=== PATIENT | male | born 1985 | race Caucasian/White ===

== ENCOUNTER 2016-08-22 18:22 | Emergency (ER) | payer MEDICAID ==
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
[2016-08-22] MEDS ORDERED: Lactated Ringers 1,000 ML IV SCH (19:30)
[2016-08-22 23:45] VITALS: BP 104/68
--- NOTE | 2016-08-23 09:09 | CR ---
Chest 2V HISTORY: Right-sided chest pain. COMPARISON: None FINDINGS: Cardiac size and pulmonary vessels normal. There are no infiltrates or effusions. No pneum othorax. The osseous structures appear normal. IMPRESSION: No acute pulmonary disease.
== END 2016-08-22 23:48 | disposition home or self-care (01) ==
LOC: JP.ED 18:22
DX: R11.2 Nausea with vomiting, unspecified (principal); F17.210 Nicotine dependence, cigarettes, uncomplicated
CPT/HCPCS: 36415; 70450; 71020; 80053; 80305; 81001; 83605; 83735; 84100; 85025; 93005; 96360; 99285; J7120

== ENCOUNTER 2020-10-29 11:57 | Emergency (ER) | payer MEDICAID ==
[2020-10-29 12:15] VITALS: BP 140/80; PULSE 76
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
== END 2020-10-29 13:44 | disposition other institution (70) ==
LOC: JP.ED 11:57
DX: F15.10 Other stimulant abuse, uncomplicated (principal); Z20.822 Contact with and (suspected) exposure to COVID-19; Z72.0 Tobacco use
CPT/HCPCS: 36415; 80305-QW; 80307; 99283; U0002